=== PATIENT | male | born 1960 | race Caucasian/White ===

== ENCOUNTER → 2016-08-02 | Outpatient (CLI) | payer MEDICARE ==
[~2016-08-02] MED LIST: ACTOPLUS MET 851 TA1 PO; AMITRIPTYLINE25 MG; ASPIRIN E.C.81 MG PO; BENTYL10 MG PO; BYDUREON; BYETTA10 MCG/0.0 SC; CIPRO250 MG PO; CLEOCIN HCL300 MG PO; CRESTOR40 MG PO; DAYPRO600 M1 PO; FLAGYL500 MG PO; FLUOXETINE20 MG; FLUOXETINE40 MG PO; GLIPIZIDE5 MG; HYDROCODONE BIT1 T11 PO; LANTUS100 U/ML SC; LEVOFLOXACIN500 MG PO; LOVAZA1 GM PO; Motrin,Rufen800 MG PO; NAPROSYN500 MG PO; NEURONTIN100 MG PO; NEURONTIN300 MG PO; NEURONTIN800 MG PO; OMEPRAZOLE DR20 MG PO; PROZAC40 MG PO; TOUJEO300 U/ML SC; TRIAMTERENE; TRIAMTERENE & H1 CA1; TRULICITY0.75 MG/0. SC; VERELAN SR 240240 MG PO; VITAMIN D32000 I1 PO; WELCHOL625 MG; ZESTRIL,PRINIVI20 MG PO; ZOFRAN4 MG PO; [UNRECOGNIZED DRUG - OTHER]
== END | disposition home or self-care (01) ==
LOC: US 10:50
DX: M79.604 Pain in right leg (principal); E11.9 Type 2 diabetes mellitus without complications; I10 Essential (primary) hypertension; J44.9 Chronic obstructive pulmonary disease, unspecified; R20.0 Anesthesia of skin; R20.2 Paresthesia of skin; G62.9 Polyneuropathy, unspecified

== ENCOUNTER → 2016-11-08 | Outpatient (CLI) | payer OTHER ==
[~2016-11-08] MED LIST changes: +GLIPIZIDE5 MG PO; +MAXZIDE 50 MG-71 TA1 PO; +TOUJEO300 U/ML SQ; +VERAPAMIL240 MG PO; -VERELAN SR 240240 MG PO
== END | disposition home or self-care (01) ==
LOC: CARD 11-07 09:44
DX: R07.2 Precordial pain (principal)

== ENCOUNTER 2016-12-02 00:38 | Inpatient (IN) | payer OTHER ==
[~2016-12-02] VITALS: Ht 177.8 cm; Wt 145.7 kg
[2016-12-02 00:43] VITALS: BP 150/84
[2016-12-02 01:21] LABS: BASO # 0.1 10*3/uL (0.0-0.1); BASO % 0.6 % (0.0-1.0); EOS # 0.2 10*3/uL (0.0-0.4); EOS % 1.8 % (1.0-4.0); HEMATOCRIT 40.4 % (42.0-52.0); HEMOGLOBIN 13.6 g/dl (14.0-18.0); LYMPH # 1.6 10*3/uL (1.3-4.4); LYMPH % 15.1 % (27.0-41.0); MEAN CELL VOLUME 87.6 fl (80.0-94.0); MEAN CORPUSCULAR HGB 29.5 pg (27.0-31.0); MEAN CORPUSCULAR HGB CONC 33.7 g/dl (33.0-37.0); MEAN PLATELET VOLUME 10.5 fl (9.6-12.3); MONO % 8.9 % (3.0-9.0); NEUT # 7.9 10*3/uL (2.3-7.9); NEUT % 73.2 % (47.0-73.0); PLATELET COUNT AUTOMATED 237 10*3/uL (130-400); RED BLOOD COUNT 4.61 10*6/uL (4.50-5.90); RED CELL DISTRI WIDTH 13.1 % (0-14.5); WHITE BLOOD COUNT 10.8 10*3/uL (4.8-10.8)
[2016-12-02 01:35] LABS: POTASSIUM 4.3 mmol/L (3.5-5.1)
[2016-12-02 02:10] VITALS: BP 142/78
[2016-12-02 02:50] VITALS: BP 152/82
[2016-12-02 04:03] VITALS: BP 149/82
[2016-12-02 04:30] LABS: ALBUMIN 2.9 gm/dl (3.1-4.5); BILIRUBIN, TOTAL 0.4 mg/dl (0.2-1.0); POTASSIUM 4.2 mmol/L (3.5-5.1); TOTAL PROTEIN 7.4 gm/dL (6.4-8.2)
[2016-12-02 04:32] LABS: FREE T4 1.16 ng/dl (0.76-1.46)
[2016-12-02 04:35] LABS: HEMOGLOBIN A1c 7.8 % (4.8-5.6)
[2016-12-02 04:36] LABS: THYROID STIM HORMONE (HS) 2.43 uIU/ml (0.358-4.75)
[2016-12-02 04:37] LABS: INTERNATIONAL NORM RATIO 0.9 (2.0-3.5)
[2016-12-02] MEDS ORDERED: COREG25 MG PO (06:01)
[2016-12-02] MEDS ORDERED: NITROSTAT0.4 MG SL (06:04)
[2016-12-02] MEDS ORDERED: BRILINTA90 M1 PO (06:04)
[2016-12-02] MEDS ORDERED: ACTOPLUS MET 851 TA1 PO (06:06)
[2016-12-02] MEDS ORDERED: SINGULAIR10 M1 PO (06:07)
[2016-12-02] MEDS ORDERED: ASMANEX220 MCG INH (06:09)
[2016-12-02] MEDS ORDERED: AVPAK AZITHROM250 M1 PO (06:14)
[2016-12-02 07:24] LABS: VITAMIN D, 25-HYDROXY 26.5 ng/mL (30-100)
[2016-12-02 07:25] LABS: FOLIC ACID 15.14 ng/mL (>5.38)
[2016-12-02 08:00] VITALS: BP 128/65
[2016-12-02 12:00] VITALS: BP 132/81
[2016-12-02] MEDS ORDERED: ZESTRIL20 MG PO (13:44)
[2016-12-02] MEDS ORDERED: ASPIRIN FOR CHI81 MG PO (16:21)
== END 2016-12-02 15:48 | disposition left against medical advice (07) | DRG 872 ==
LOC: ED 00:38 → 4E 03:33
PROVIDERS: Emergency Medicine; Internal Medicine
DX: A41.9 Sepsis, unspecified organism (principal); E87.0 Hyperosmolality and hypernatremia; E11.22 Type 2 diabetes mellitus with diabetic chronic kidney disease; L03.211 Cellulitis of face; E11.40 Type 2 diabetes mellitus with diabetic neuropathy, unspecified; I12.9 Hypertensive chronic kidney disease with stage 1 through stage 4 chronic kidney disease, or unspecified chronic kidney disease; N18.3 Chronic kidney disease, stage 3 (moderate); D72.810 Lymphocytopenia; E11.65 Type 2 diabetes mellitus with hyperglycemia; I25.10 Atherosclerotic heart disease of native coronary artery without angina pectoris; F17.200 Nicotine dependence, unspecified, uncomplicated; E53.8 Deficiency of other specified B group vitamins; Z53.21 Procedure and treatment not carried out due to patient leaving prior to being seen by health care provider; Z79.82 Long term (current) use of aspirin; Z79.899 Other long term (current) drug therapy; Z79.4 Long term (current) use of insulin; Z95.5 Presence of coronary angioplasty implant and graft; Z88.0 Allergy status to penicillin; Z83.3 Family history of diabetes mellitus; Z71.6 Tobacco abuse counseling; Z82.49 Family history of ischemic heart disease and other diseases of the circulatory system; Z79.2 Long term (current) use of antibiotics

== ENCOUNTER 2017-04-27 22:51 | Emergency (ER) | payer OTHER ==
[~2017-04-27] VITALS: Ht 177.8 cm; Wt 147.0 kg
[~2017-04-27 22:51] MED LIST changes: +ASMANEX220 MCG INH; +ASPIRIN FOR CHI81 MG PO; +AVPAK AZITHROM250 M1 PO; +BRILINTA90 M1 PO; +COREG25 MG PO; +NITROSTAT0.4 MG SL; +SINGULAIR10 M1 PO; +ZESTRIL20 MG PO
[2017-04-27 22:57] VITALS: BP 154/91
[2017-04-27 23:24] LABS: BASO # 0.1 10*3/uL (0.0-0.1); BASO % 1.4 % (0.0-1.0); EOS # 0.6 10*3/uL (0.0-0.4); EOS % 9.1 % (1.0-4.0); HEMATOCRIT 35.7 % (42.0-52.0); HEMOGLOBIN 11.6 g/dl (14.0-18.0); LYMPH % 29.8 % (27.0-41.0); MEAN CELL VOLUME 92.7 fl (80.0-94.0); MEAN CORPUSCULAR HGB 30.1 pg (27.0-31.0); MEAN CORPUSCULAR HGB CONC 32.5 g/dl (33.0-37.0); MEAN PLATELET VOLUME 9.9 fl (9.6-12.3); MONO # 0.7 10*3/uL (0.1-1.0); MONO % 10.2 % (3.0-9.0); NEUT # 3.2 10*3/uL (2.3-7.9); NEUT % 49.3 % (47.0-73.0); PLATELET COUNT AUTOMATED 246 10*3/uL (130-400); RED BLOOD COUNT 3.85 10*6/uL (4.50-5.90); RED CELL DISTRI WIDTH 13.3 % (0-14.5); WHITE BLOOD COUNT 6.6 10*3/uL (4.8-10.8)
[2017-04-27 23:34] LABS: ALKALINE PHOSPHATASE 79 U/L (45-117); BUN 16 mg/dl (7-24); CHLORIDE 106 mmol/L (98-107); CREATININE 1.45 mg/dL (0.70-1.30); LIPASE 112 U/L (73-393); POTASSIUM 3.7 mmol/L (3.5-5.1); SGOT/AST 25 IU/L (3-35); SGPT/ALT 32 U/L (12-78); SODIUM 140 mmol/L (136-145); TROPONIN I 0.019 ng/ml (<0.045)
[2017-04-28] MEDS ORDERED: LASIX20 MG PO (00:31)
== END 2017-04-28 00:55 | disposition left against medical advice (07) ==
LOC: ED 22:51
PROVIDERS: Nurse Practitioner Family
DX: I13.0 Hypertensive heart and chronic kidney disease with heart failure and stage 1 through stage 4 chronic kidney disease, or unspecified chronic kidney disease (principal); E11.22 Type 2 diabetes mellitus with diabetic chronic kidney disease; N18.3 Chronic kidney disease, stage 3 (moderate); I50.9 Heart failure, unspecified; F17.200 Nicotine dependence, unspecified, uncomplicated; E11.65 Type 2 diabetes mellitus with hyperglycemia; I25.10 Atherosclerotic heart disease of native coronary artery without angina pectoris; G62.9 Polyneuropathy, unspecified; J44.9 Chronic obstructive pulmonary disease, unspecified; Z98.890 Other specified postprocedural states; Z90.89 Acquired absence of other organs; Z95.5 Presence of coronary angioplasty implant and graft; Z79.899 Other long term (current) drug therapy; Z88.0 Allergy status to penicillin

== ENCOUNTER → 2017-05-01 | Outpatient (CLI) | payer OTHER ==
[~2017-05-01] MED LIST changes: +LASIX20 MG PO
[2017-05-01 19:03] LABS: CREATININE 1.48 mg/dL (0.70-1.30); POTASSIUM 3.6 mmol/L (3.5-5.1)
== END ==
LOC: LAB 18:26
PROVIDERS: Internal Medicine
DX: R06.02 Shortness of breath (principal); R79.89 Other specified abnormal findings of blood chemistry

== ENCOUNTER → 2017-05-08 | Outpatient (CLI) | payer OTHER | END | disposition home or self-care (01) | LOC: CARD 13:54 | DX: I51.7 Cardiomegaly (principal) ==

== ENCOUNTER 2017-09-25 21:33 | Emergency (ER) | payer OTHER ==
[~2017-09-25] VITALS: Ht 177.8 cm; Wt 154.2 kg
[2017-09-25 21:40] VITALS: BP 150/97
[2017-09-25] MEDS ORDERED: CLINDAMYCIN HC300 MG PO (23:26)
== END 2017-09-26 00:40 | disposition home or self-care (01) ==
LOC: ED 21:33
DX: S00.12XA Contusion of left eyelid and periocular area, initial encounter (principal); S50.812A Abrasion of left forearm, initial encounter; S50.811A Abrasion of right forearm, initial encounter; I13.0 Hypertensive heart and chronic kidney disease with heart failure and stage 1 through stage 4 chronic kidney disease, or unspecified chronic kidney disease; E11.22 Type 2 diabetes mellitus with diabetic chronic kidney disease; N18.3 Chronic kidney disease, stage 3 (moderate); I50.9 Heart failure, unspecified; I25.10 Atherosclerotic heart disease of native coronary artery without angina pectoris; E78.5 Hyperlipidemia, unspecified; E11.40 Type 2 diabetes mellitus with diabetic neuropathy, unspecified; Z88.0 Allergy status to penicillin; Z79.899 Other long term (current) drug therapy; Y04.0XXA Assault by unarmed brawl or fight, initial encounter; Y93.89 Activity, other specified; Y92.89 Other specified places as the place of occurrence of the external cause; Y99.8 Other external cause status

== ENCOUNTER 2018-07-22 17:49 | Emergency (ER) | payer OTHER ==
[~2018-07-22] VITALS: Ht 177.8 cm; Wt 154.2 kg
[~2018-07-22 17:49] MED LIST changes: +CLINDAMYCIN HC300 MG PO
[2018-07-22 19:20] VITALS: BP 118/78
[2018-07-22] MEDS ORDERED: ZITHROMAX250 MG PO (20:26)
== END 2018-07-22 20:41 | disposition home or self-care (01) ==
LOC: ED 17:49
DX: J40 Bronchitis, not specified as acute or chronic (principal); E78.5 Hyperlipidemia, unspecified; I25.10 Atherosclerotic heart disease of native coronary artery without angina pectoris; I13.0 Hypertensive heart and chronic kidney disease with heart failure and stage 1 through stage 4 chronic kidney disease, or unspecified chronic kidney disease; E11.22 Type 2 diabetes mellitus with diabetic chronic kidney disease; N18.3 Chronic kidney disease, stage 3 (moderate); I50.9 Heart failure, unspecified; E11.40 Type 2 diabetes mellitus with diabetic neuropathy, unspecified; F17.200 Nicotine dependence, unspecified, uncomplicated; Z88.0 Allergy status to penicillin; Z79.899 Other long term (current) drug therapy; Z79.2 Long term (current) use of antibiotics

== ENCOUNTER 2018-12-30 02:32 | Emergency (ER) | payer OTHER ==
[~2018-12-30] VITALS: Ht 177.8 cm; Wt 154.2 kg
[~2018-12-30 02:32] MED LIST changes: +ZITHROMAX250 MG PO
[2018-12-30 02:35] VITALS: BP 149/74
== END 2018-12-30 03:54 | disposition home or self-care (01) ==
LOC: ED 02:32
DX: S62.346A Nondisplaced fracture of base of fifth metacarpal bone, right hand, initial encounter for closed fracture (principal); F17.200 Nicotine dependence, unspecified, uncomplicated; Z88.0 Allergy status to penicillin; Z79.899 Other long term (current) drug therapy; Z79.2 Long term (current) use of antibiotics; W18.39XA Other fall on same level, initial encounter; Y93.89 Activity, other specified; Y92.89 Other specified places as the place of occurrence of the external cause; Y99.8 Other external cause status

== ENCOUNTER → 2019-04-07 | Outpatient (CLI) | payer OTHER | END | disposition home or self-care (01) | LOC: US 14:48 | DX: I65.23 Occlusion and stenosis of bilateral carotid arteries (principal); H53.8 Other visual disturbances; E11.9 Type 2 diabetes mellitus without complications; I10 Essential (primary) hypertension; Z87.891 Personal history of nicotine dependence ==

== ENCOUNTER → 2019-05-13 | Outpatient (CLI) | payer OTHER ==
[2019-05-13 09:20] LABS: CREATININE 1.54 mg/dL (0.70-1.30)
== END | disposition home or self-care (01) ==
LOC: LAB 08:31 → CT 09:00
PROVIDERS: Radiology Diagnostic Radiology
DX: I65.21 Occlusion and stenosis of right carotid artery (principal)

== ENCOUNTER → 2019-12-03 | Outpatient (CLI) | payer OTHER | END | disposition home or self-care (01) | LOC: MRI 10-20 08:00 → LAB 13:50 → MRI 13:50 | DX: I67.82 Cerebral ischemia (principal) ==

== ENCOUNTER 2019-12-20 00:02 | Emergency (ER) | payer OTHER ==
[~2019-12-20] VITALS: Ht 177.8 cm; Wt 139.7 kg
[2019-12-20 00:34] VITALS: BP 129/79
== END 2019-12-20 05:18 | disposition home or self-care (01) ==
LOC: ED 00:02
DX: S00.432A Contusion of left ear, initial encounter (principal); E11.9 Type 2 diabetes mellitus without complications; I10 Essential (primary) hypertension; J44.9 Chronic obstructive pulmonary disease, unspecified; K21.9 Gastro-esophageal reflux disease without esophagitis; E78.00 Pure hypercholesterolemia, unspecified; Z88.0 Allergy status to penicillin; Z79.899 Other long term (current) drug therapy; Y08.89XA Assault by other specified means, initial encounter; Y93.89 Activity, other specified; Y92.89 Other specified places as the place of occurrence of the external cause; Y99.8 Other external cause status

== ENCOUNTER → 2020-06-14 | Outpatient (CLI) | payer OTHER ==
[2020-06-14 17:27] LABS: VITAMIN D, 25-HYDROXY 27.5 ng/mL (30-100)
== END | disposition home or self-care (01) ==
LOC: LAB 15:43
PROVIDERS: ATTEND Internal Medicine
DX: M47.812 Spondylosis without myelopathy or radiculopathy, cervical region (principal); M43.12 Spondylolisthesis, cervical region; M85.88 Other specified disorders of bone density and structure, other site; M79.602 Pain in left arm; E11.9 Type 2 diabetes mellitus without complications; E55.9 Vitamin D deficiency, unspecified

== ENCOUNTER → 2020-09-16 | Outpatient (CLI) | payer OTHER | END | disposition home or self-care (01) | LOC: CARD 13:45 | PROVIDERS: ATTEND Internal Medicine | DX: I51.7 Cardiomegaly (principal) ==

== ENCOUNTER → 2022-04-12 | Outpatient (CLI) | payer OTHER | END | disposition home or self-care (01) | LOC: RAD 15:38 | PROVIDERS: ATTEND Internal Medicine | DX: M19.012 Primary osteoarthritis, left shoulder (principal) ==

== ENCOUNTER → 2022-09-18 | Day surgery (SDC) | payer OTHER ==
[2022-09-18 08:10] VITALS: BP 115/79
[2022-09-18 09:14] VITALS: BP 123/72
[2022-09-18 09:29] VITALS: BP 125/74
[2022-09-18 09:44] VITALS: BP 142/86
== END | disposition home or self-care (01) ==
LOC: SDC 09-14 10:15
PROVIDERS: ATTEND Surgery
DX: Z12.11 Encounter for screening for malignant neoplasm of colon (principal); K63.5 Polyp of colon; K57.30 Diverticulosis of large intestine without perforation or abscess without bleeding; J44.9 Chronic obstructive pulmonary disease, unspecified; K21.9 Gastro-esophageal reflux disease without esophagitis; F17.210 Nicotine dependence, cigarettes, uncomplicated; Z88.0 Allergy status to penicillin; E11.40 Type 2 diabetes mellitus with diabetic neuropathy, unspecified; E78.00 Pure hypercholesterolemia, unspecified; Z98.890 Other specified postprocedural states; Z90.89 Acquired absence of other organs

== ENCOUNTER 2025-02-15 17:02 | Emergency (ER) | payer OTHER ==
[~2025-02-15] VITALS: Ht 177.8 cm; Wt 122.5 kg
[2025-02-15 17:21] VITALS: BP 179/83
== END 2025-02-15 18:51 | disposition home or self-care (01) ==
LOC: ED 17:02
DX: S63.502A Unspecified sprain of left wrist, initial encounter (principal); I10 Essential (primary) hypertension; J44.9 Chronic obstructive pulmonary disease, unspecified; K21.9 Gastro-esophageal reflux disease without esophagitis; F32.A Depression, unspecified; E78.00 Pure hypercholesterolemia, unspecified; E11.40 Type 2 diabetes mellitus with diabetic neuropathy, unspecified; Z88.0 Allergy status to penicillin; Z98.890 Other specified postprocedural states; Z90.89 Acquired absence of other organs; W19.XXXA Unspecified fall, initial encounter; Y93.89 Activity, other specified; Y92.89 Other specified places as the place of occurrence of the external cause; Y99.8 Other external cause status